=== PATIENT | male | born 1945 | race Two or more races ===

== ENCOUNTER → 2016-04-01 | Day surgery (SDC) | payer MEDICARE, OTHER ==
[~2016-04-01] VITALS: Ht 172.7 cm; Wt 74.4 kg
[2016-04-01] VITALS (9 sets, daily range): BP systolic 107–126; BP diastolic 55–65
[~2016-04-01] MED LIST: AMLODIPINE BESYL5 MG ORAL; ATORVASTATIN CA10 MG ORAL; LR 1000ml 1,000 ML IVLG SCH; LR 1000ml ONE; METFORMIN HCL500 M1 ORAL; Propofol 10mg/ml 20ml IV ONE
--- NOTE | 2016-04-01 07:58 | Short Stay Surgery H&P ---
History of Present Illness History of Present Illness Chief Complaint Abdominal pain and history of colon polyp, GERDs HPI Victor Manuel Chapa is a 70 year old male who was admitted on for Gerd,Abdominal Pain, colon polyp Patient History Allergies: Coded Allergies: No Known Allergies (Unverified , 03/31/16) PAST MEDICAL HISTORY: (1) Diabetes (2) Hyperlipidemia (3) Psoriasis (4) Hypertension Past Surgeries: Social History: Medication History Scheduled Amlodipine Besylate* (Amlodipine Besylate*), 5 MG ORAL DAILY, (Reported) Atorvastatin Calcium* (Lipitor*), 10 MG ORAL BEDTIME, (Reported) Metformin Hcl* (Metformin Hcl*), 500 MG ORAL DA, (Reported) Review of Systems Cardiovascular: Reports: no symptoms Respiratory: Reports: no symptoms Skeletal: Reports: no symptoms Gastrointestinal: Reports: gastro esophageal reflux disease Genitourinary: Reports: no symptoms Neurologic: Reports: no symptoms Endocrine: Reports: no symptoms Hematologic: Reports: no symptoms Physical Exam Vital Signs Last Vital Signs Date Time Temp Pulse Resp B/P Pulse Ox O2 Delivery O2 Flow Rate FiO2 04/01/16 07:24 97.5 62 18 126/65 100 Room Air Skin: normal HENT: normal Heart: abnormal Abdomen: normal Extremities: normal Genitourinary: normal Plan Plan of Care Upper and lower GI endoscopy Preop Interventions None. Summary of Findings See the reports Final Diagnosis: Attestation Are the patient's medical conditions optimized for surgery? Attestation Response: yes BALA LAWSON Apr 01, 2016 07:58
--- NOTE | 2016-04-01 08:00 | Pre-Procedure Note/Attestation ---
Pre-Procedure Note/Attestation Complete Prior to Procedure Planned Procedure: left Procedure Narrative: The examination of the upper and the lower GI tract. Indications for Procedure Pre-Operative Diagnosis: R/O coloon polyp/gastritis duodenal ulcer. Attestation I attest that I discussed the nature of the procedure; its benefits; risks and complications; and alternatives (and the risks and benefits of such alternatives ), prior to the procedure, with the patient (or the patient's legal public relations representative). I attest that, if there was a reasonable possibility of needing a blood transfusion, the patient (or the patient's legal public relations representative) was given the [place] [facility] [employer] [facility] standardized written summary, pursuant to the [place] Blood Safety Act ([place] Health and Safety Code # 1645, as amended). I attest that I re-evaluated the patient just prior to the surgery and that there has been no change in the patient's H&P, except as documented below: LULU,SAID Apr 01, 2016 08:00
--- NOTE | 2016-04-01 08:14 | Anethesia Preoperative Eval ---
Anesthesia Pre-op PMH/ROS General Date of Evaluation: Apr 01, 2016 Time of Evaluation: 07:58 Anesthesiologist: swapna ASA Score: ASA 3 Mallampati Score Class I : Soft palate, uvula, fauces, pillars visible Class II: Soft palate, uvula, fauces visible Class III: Soft palate, base of uvula visible Class IV: Only hard plate visible Mallampati Classification: Class II Surgeon: lucia Diagnosis: GERD, abdominal pain, hx colon polyp Surgical Procedure: gd/colonoscopy Anesthesia History: none Allergies: Coded Allergies: No Known Allergies (Unverified , 03/31/16) Past Medical History Cardiovascular: Reports: HTN Gastrointestinal/Genitourinary: Reports: other - BPH Anesthesia Pre-op Phys. Exam Physician Exam Last Vital Signs Date Time Temp Pulse Resp B/P Pulse Ox O2 Delivery O2 Flow Rate FiO2 04/01/16 07:24 97.5 62 18 126/65 100 Room Air Airway Exam Mallampati Score: Class II Teeth: missing Anesthesia Pre-op A/P Risk Assessment & Plan Plan: propofol Status Change Before Surgery: Yunior Faria MD Apr 01, 2016 08:14
--- NOTE | 2016-04-01 08:15 | Immediate Post-Op Evaluation ---
Immediate Post-Op Evalulation Immediate Post-Op Evalulation Date of Evaluation: Apr 01, 2016 Time of Evaluation: 08:37 IV Fluids: 500 Blood Pressure Systolic: 109 Blood Pressure Diastolic: 61 Pulse Rate: 56 Respiratory Rate: 20 O2 Sat by Pulse Oximetry: 100 Temperature (Fahrenheit): 98.5 Pain Score (1-10): 0 Nausea: No Vomiting: No Complications none Patient Status: awake, patent, none Hydration Status: adequate Yunior Anaya MD Apr 01, 2016 08:15
--- NOTE | 2016-04-01 08:17 | 48 Hour Post Anesthesia Eval ---
Post Anesthesia Evaluation Date of Evaluation: Apr 01, 2016 Time of Evaluation: 09:00 Blood Pressure Systolic: 116 0: 63 Pulse Rate: 55 Respiratory Rate: 13 Temperature (Fahrenheit): 98.5 O2 Sat by Pulse Oximetry: 100 Airway: patent Nausea: No Vomiting: No Pain Intensity: 0 Hydration Status: adequate Cardiopulmonary Status: stable Mental Status/LOC: patient returned to baseline Follow-up Care/Observations: n/a Post-Anesthesia Complications: tolerated well Follow-up care needed: ready to discharge Yunior Anaya MD Apr 01, 2016 08:17
--- NOTE | 2016-04-01 08:25 | Endoscopy Procedure Note ---
Endoscopy Procedure Note Indication for Procedure: Abdominal pains, GERDS and history of colon polyps. Procedures Performed: EGD - Small Hiatal hernia noted otherwise completely normal Upper GI endoscopy and random biospy obtained from gastric body., colonoscopy - Poor colon clean up with high redundancy of the colon and diverticulosis of the rectosigmoid area otherwise normal study no visible polyp noted though diminutive polypoid lesion can not be ruled out due to poor colon clean up. Specimen: yes Pt Tolerated Procedure Well: Yes Estimated Blood Loss: none Anesthesiologist: Dr. Dr. Anaya Anesthesia: moderate sedation Medication Given: see anesthesia record Implant(s) used?: No 50 yrs or older w/o bx or poly: Yes 10yrs. F/U not recommended: Yes If not recommended, why?: Inadequate Prep 10 yrs. F/U needed: Yes 18 years or older w/prev. colo: Yes <3yrs. since last colonoscopy: No Med reason:<3 yrs.: System Reason:<3 yrs.: BALA LAWSON Apr 01, 2016 08:25
--- NOTE | 2016-04-01 08:26 | Discharge Instructions ---
Discharge Instructions Discharge Instructions Follow up with: Visit the doctor after 2 weeks in office. For Congestive Heart Failure Reminder Report to your physician any weight gain of 5 pounds or more in one week. BALA LAWSON Apr 01, 2016 08:26
--- NOTE | 2016-04-01 08:58 | Operative Note - Dictated ---
DATE OF OPERATION: 04/01/2016 PROCEDURE: Esophagogastroduodenoscopy with biopsy. PREOPERATIVE DIAGNOSES: 1. Abdominal pain. 2. History of gastroesophageal reflux, rule out peptic ulcer disease. POSTOPERATIVE DIAGNOSIS: 1. Small hiatal hernia. Otherwise, complete normal upper gastrointestinal endoscopy. Biopsy was taken per random from gastric body. MEDICATIONS USED: Per Yunior Anaya M.D., anesthesiologist. INSTRUMENT: GIF Olympus upper gastrointestinal video endoscope. DESCRIPTION OF PROCEDURE: The patient after arriving endoscopy unit, was told about risks and benefits of the procedure, which he accepted and signed the informed consent. He was then put on the left lateral decubitus position. After adequate IV sedation, the scope was gently passed through the cricopharyngeal area, was lodged into the upper esophagus, gradually advanced towards gastroesophageal junction. The entire length of the esophagus looked normal. No evidence of varices, inflammatory process, ulceration, etc. was found. However, there was evidence of a small hiatal hernia of no great significance and there was no any evidence of Rodriguez's mucosa. The scope was then guided into the stomach. Gastric cavity was distended with insufflation of air and gradually the areas of the fundus and the body and the antrum were examined, which looked normal. The retroflexion maneuver was also applied in the fundus of the stomach, which did not reveal any abnormality in the area and GE junction. Finally, the scope was gradually guided into the body and a random biopsy from gastric body obtained, and subsequently, was passed through normal looking pylorus. First and second portion of duodenum were also found to be completely normal. At this time, the scope was pulled out and the procedure was terminated. The patient tolerated the procedure well. Said Soumya Giles DR: Jacqueline JOB#: [id number] CC:
--- NOTE | 2016-04-01 09:17 | Operative Note - Dictated ---
DATE OF OPERATION: 04/01/2016 SURGEON: Damian Giles M.D. PROCEDURE: Total colonoscopy. PREOPERATIVE DIAGNOSES: 1. History of colon polyp. 2. Abdominal pain. POSTOPERATIVE DIAGNOSES: 1. Poor colonic preparation. 2. Significantly redundant rectosigmoid colon with evidence of diverticulosis in this area. Otherwise, complete normal study up to the ileocecal valve as examined. MEDICATIONS USED: Per Yunior Anaya M.D., anesthesiologist. INSTRUMENT: GIF Olympus videocolonoscope. DESCRIPTION OF PROCEDURE: The patient after arriving in the endoscopy unit, was told about risks and benefits of the procedure, which he accepted and signed the informed consent. He was then put on the left lateral decubitus position. After adequate IV sedation, scope gently passed through the anal area and a retroflexion maneuver, which was applied here did not reveal any major hemorrhoids. At this point, the scope was gradually advanced into the rectum, it looked normal and passed into rectosigmoid area, which was filled with liquidy stool significantly making the examination difficult and there was some formed stool as well, however with irrigation scope was gradually passed through a very redundant rectosigmoid area, which revealed evidence of diverticular openings. There was no any evidence of inflammatory process, ulceration, or stricture however. With maneuvers significant amount of time was spent to pass through this redundant colon reaching to the splenic flexure. From there, the scope was guided into the transverse colon, hepatic flexure, and finally reached to the right colon through the base of the cecum. All these areas remained to be normal and no evidence of major polyps, tumors etc. was found. Due to poor cleanup of the colon however the presence of small diminutive hyperplastic polypoid lesion could not be ruled out. There was no any major polyps or tumors seen at this time. Within 6 to 7 minutes the scope was gradually pulled out and reexamination of the colon did not reveal any other pathology. The patient tolerated the procedure well and left the endoscopy room in a good condition. Damian Giles M.D. DR: ADDISON JOB#: [id number] CC:
== END | disposition home or self-care (01) ==
LOC: GAS 06:56
DX: K29.50 Unspecified chronic gastritis without bleeding (principal); K21.9 Gastro-esophageal reflux disease without esophagitis; K44.9 Diaphragmatic hernia without obstruction or gangrene; Z86.010 Personal history of colon polyps; Q43.8 Other specified congenital malformations of intestine; K57.30 Diverticulosis of large intestine without perforation or abscess without bleeding; E11.9 Type 2 diabetes mellitus without complications; Z79.84 Long term (current) use of oral hypoglycemic drugs; E78.5 Hyperlipidemia, unspecified; I10 Essential (primary) hypertension; N40.0 Benign prostatic hyperplasia without lower urinary tract symptoms; L40.9 Psoriasis, unspecified
CPT/HCPCS: 43239; 45378; 82962; J2704; J7120; 94003; 94150

== ENCOUNTER 2016-08-30 09:05 | Outpatient (CLI) | payer MEDICARE, OTHER ==
[~2016-08-30 09:05] MED LIST changes: -LR 1000ml 1,000 ML IVLG SCH; -LR 1000ml ONE; -Propofol 10mg/ml 20ml IV ONE
[2016-08-30 09:42] VITALS: BP_SYST 116; BP_SYST 126; BP_DIAS 54; BP_DIAS 76
--- NOTE | 2016-08-30 11:05 | GI Initial Consult Note ---
History of Present Illness General Date patient seen: Aug 30, 2016 Time patient seen: 10:47 Referring physician: GABE Reason for Consultation: ABDOMINAL PAIN/BLOATING Present Illness HPI 71 year old male patient referred by Dr. Washington for evaluation of abdominal pain and bloating. In addition the patient presents with c/o of GERD. The patient recently had an EGD performed in [place] by Dr. Lawson, see endoscopic procedure note below. The patient c/o of abdominal bloating, mainly before meals. He currently is on Hyoscyamine x 2 months and probiotics with minimal relief. The patient also reports that he has not taken his Dexilant. The patient also c/o of weight loss. Has hx of iron deficiency. Endoscopy Procedure Note Indication for Procedure: Abdominal pains, GERDS and history of colon polyps. Procedures Performed: EGD - Small Hiatal hernia noted otherwise completely normal Upper GI endoscopy and random biopsy obtained from gastric body., colonoscopy - Poor colon clean up with high redundancy of the colon and diverticulosis of the rectosigmoid area otherwise normal study no visible polyp noted though diminutive polypoid lesion can not be ruled out due to poor colon clean up. BALA LAWSON - Apr 01, 2016 08:25 Home Meds Reported Medications Metformin Hcl* (METFORMIN HCL*) 500 Mg Tablet, 500 MG ORAL DA, TAB 03/31/16 Atorvastatin Calcium* (LIPITOR*) 10 Mg Tablet, 10 MG ORAL BEDTIME, TAB 03/31/16 Amlodipine Besylate* (AMLODIPINE BESYLATE*) 5 Mg Tablet, 5 MG ORAL DAILY, TAB 03/31/16 Med list reviewed/reconciled: Yes Allergies: Coded Allergies: No Known Allergies (Unverified , 03/31/16) Patient History History Provided By: Patient, Medical Record PMH Narrative PAST MEDICAL HISTORY: (1) Diabetes (2) Hyperlipidemia (3) Psoriasis (4) Hypertension PSHx - N/A Family History Narrative Mother - Pancreatic CA, passed at age 80. Social History: Reports: other - coffee Review of Systems All Other Systems: negative except mentioned in HPI Physical Exam Vital Signs Date Time Temp Pulse Resp B/P Pulse Ox O2 Delivery O2 Flow Rate FiO2 08/30/16 09:42 98.1 55 16 116/54 100 Sp02 EP Interpretation: reviewed General Appearance: well appearing, no apparent distress, alert Head: normocephalic EENT: PERRL/EOMI, normal ENT inspection Neck: supple Respiratory: normal breath sounds, no respiratory distress Cardiovascular: normal rate Gastrointestinal: normal inspection, non tender, soft, normal bowel sounds Rectal: deferred Musculoskeletal: normal inspection, back normal Neurologic: normal inspection, alert, oriented x3, responsive Psychiatric: normal inspection, judgement/insight normal, memory normal Skin: normal inspection, normal color, no rash, warm/dry, palpation normal Lymphatic: normal inspection, no adenopathy GI: Plan Problems: (1) Weight loss (2) Abdominal pain (3) Abdominal bloating (4) Iron deficiency (5) GERD (gastroesophageal reflux disease) (6) Diabetes (7) Hyperlipidemia Plan EGD/pathology reviewed with patient. ordered APCT given recent weight loss SBCE after imaging studies consider BT ?symptoms due to metformin RTC after imaging study. Seen with Dr. Garcia. Thank you for referring this patient. Radha Blair N.P. Aug 30, 2016 11:05
[2016-08-30] MEDS ORDERED: FERROUS SULFAT325 MG ORAL (12:56)
[2016-08-30] MEDS ORDERED: ASPIRIN EC81 MG ORAL (12:56)
[2016-08-30] MEDS ORDERED: PSYLLIUM FIBE0.52 G1 PO (12:56)
[2016-08-30] MEDS ORDERED: DOK100 M2 PO (12:56)
== END 2016-08-30 09:40 | disposition home or self-care (01) ==
LOC: PAN 09:05
DX: R10.9 Unspecified abdominal pain (principal); R14.0 Abdominal distension (gaseous); R63.4 Abnormal weight loss; E61.1 Iron deficiency; K21.9 Gastro-esophageal reflux disease without esophagitis; E11.9 Type 2 diabetes mellitus without complications; E78.5 Hyperlipidemia, unspecified; Z86.010 Personal history of colon polyps; I10 Essential (primary) hypertension; Z80.0 Family history of malignant neoplasm of digestive organs
CPT/HCPCS: 99201

== ENCOUNTER → 2016-09-01 | Outpatient (CLI) | payer MEDICARE, OTHER ==
[~2016-09-01] MED LIST changes: +ASPIRIN EC81 MG ORAL; +DOK100 M2 PO; +FERROUS SULFAT325 MG ORAL; +PSYLLIUM FIBE0.52 G1 PO
--- NOTE | 2016-09-01 13:30 | Diagnostic Imaging Report ---
Indications: Abdominal pain, bloating, weight loss Technique: Continuous helical CT imaging of the abdomen and pelvis was performed with automatic exposure control following administration of oral and intravenous nonionic iodine contrast, on a Siemens sensation [address] scanner. Axial, coronal, and sagittal images were reconstructed at 5 mm slice thickness. CTDI volume(s): 16 mGy Total DLP: 913 mGy-cm Findings: Comparison: None Oral contrast has passed throughout the gastrointestinal tract to the level of descending colon. Entire tract nondilated. Appendix unremarkable. Increased feces throughout colon. Multiple sigmoid colon diverticula. No obvious mass/mural thickening, adjacent stranding, associated extraluminal gas or fluid collections. 5 and 10 mm circumscribed low-attenuation foci upper pole cortex right kidney. 3 mm circumscribed low-attenuation focus interpolar cortex left kidney. Scattered mild arterial mural calcification without obvious flow-limiting stenosis or occlusion. Prostate, seminal vesicles absent. Multiple pelvic surgical clips in the prostate and along both pelvic sidewalls. Liver, gallbladder, pancreas, spleen, adrenal glands, unopacified ureters and distended urinary bladder, retroperitoneum, mesentery, remainder visualized abdominopelvic anatomy unremarkable. Mildly enlarged, affecting all 4 chambers. No significant myocardial hypertrophy. Mild increased interstitial markings and dependent portions of both lung bases. Multilevel disc space narrowing with marginal osteophyte formation lumbar, lower thoracic spine. Multilevel mild facet hypertrophy lower lumbar spine. No focal skeletal lesion identified. IMPRESSION: No evidence of acute abdominopelvic disease No evidence of neoplasm Previous radical prostatectomy Colonic diverticulosis Constipation Bilateral renal cortical lesions most likely cysts. Ultrasound confirmation suggested. Mild arteriosclerosis Mild cardiomegaly with four-chamber enlargement Nonspecific pulmonary bibasal interstitial prominence, most likely compressive Degenerative spondylosis
== END | disposition home or self-care (01) ==
LOC: CAT 08:45
DX: R10.9 Unspecified abdominal pain (principal); R63.4 Abnormal weight loss; K57.90 Diverticulosis of intestine, part unspecified, without perforation or abscess without bleeding; K59.00 Constipation, unspecified; I70.90 Unspecified atherosclerosis; I51.7 Cardiomegaly; M47.9 Spondylosis, unspecified
CPT/HCPCS: 74177; Q9967

== ENCOUNTER 2016-09-07 13:05 | Outpatient (CLI) | payer MEDICARE ==
[2016-09-07 14:49] VITALS: BP 120/72
--- NOTE | 2016-09-07 15:33 | GI Progress Note ---
Assessment/Plan Problems: (1) Constipation ICD Codes: K59.00 - Constipation, unspecified SNOMED: 04790084 (2) GERD (gastroesophageal reflux disease) ICD Codes: K21.9 - Gastro-esophageal reflux disease without esophagitis SNOMED: 235080615 (3) Iron deficiency ICD Codes: E61.1 - Iron deficiency SNOMED: 80722652 (4) Weight loss ICD Codes: R63.4 - Abnormal weight loss SNOMED: 54137183, 297966858 (5) Abdominal bloating ICD Codes: R14.0 - Abdominal distension (gaseous) SNOMED: 829158735 (6) Abdominal pain ICD Codes: R10.9 - Unspecified abdominal pain SNOMED: 83521666 Status: stable Status Narrative Seen with Dr. Garcia. Assessment/Plan Plan for SBCE next monday09/13/16. - CLD + 1L [employer] instructions day prior procedure explained to patient. rx prevacid rx miralax Breath test on next visit The patient was seen and examined at bedside and all new and available data was reviewed in the patients chart. I agree with the above findings, impression and plan. (Patient seen earlier today. Signature stamp does not reflect patient encounter time.). -Earle Garcia MD Subjective Subjective abdominal pain, epigastric has burning pain which is relieved by zantac OTC constipation weight loss anemia >> gotten better Hgb with Ferrous sulfate Objective Last 24 Hour Vital Signs Date Time Temp Pulse Resp B/P Pulse Ox O2 Delivery O2 Flow Rate FiO2 09/07/16 14:49 97.8 59 16 120/72 General Appearance: no apparent distress, alert Cardiovascular: normal rate Respiratory/Chest: normal breath sounds, no respiratory distress Abdominal Exam: normal bowel sounds, non tender, soft Extremities: normal range of motion Radha Blair N.PJonas Sep 07, 2016 15:33 EARLE GARCIA Sep 08, 2016 16:54
== END 2016-09-07 14:30 | disposition home or self-care (01) ==
LOC: PAN 13:05
DX: K59.00 Constipation, unspecified (principal); K21.9 Gastro-esophageal reflux disease without esophagitis; E61.1 Iron deficiency; R63.4 Abnormal weight loss; R14.0 Abdominal distension (gaseous); R10.9 Unspecified abdominal pain
CPT/HCPCS: 99211

== ENCOUNTER 2016-09-15 09:00 | Outpatient (CLI) | payer MEDICARE ==
[2016-09-15 09:41] VITALS: BP 118/58
--- NOTE | 2016-09-15 15:43 | GI Progress Note ---
Assessment/Plan Problems: (1) Anemia ICD Codes: D64.9 - Anemia, unspecified SNOMED: 177229775 (2) Weight loss ICD Codes: R63.4 - Abnormal weight loss SNOMED: 61395108, 095353528 (3) Iron deficiency ICD Codes: E61.1 - Iron deficiency SNOMED: 79445302 Status: stable Status Narrative Discussed with Dr. Garcia. Assessment/Plan SBCE today. RTC tomorrow for equipment return. will contact to f/u for procedure reviews Subjective Gastrointestinal/Abdominal: Reports: no symptoms Objective Last 24 Hour Vital Signs Date Time Temp Pulse Resp B/P Pulse Ox O2 Delivery O2 Flow Rate FiO2 09/15/16 09:41 97.8 60 16 118/58 General Appearance: no apparent distress, alert Cardiovascular: normal rate Respiratory/Chest: normal breath sounds, no respiratory distress Abdominal Exam: normal bowel sounds, non tender, soft Extremities: normal range of motion Radha Blair N.P. Sep 15, 2016 15:43
== END 2016-09-15 10:00 | disposition home or self-care (01) ==
LOC: PAN 09:00
DX: D64.9 Anemia, unspecified (principal); R63.4 Abnormal weight loss; E61.1 Iron deficiency

== ENCOUNTER 2016-09-28 13:36 | Outpatient (CLI) | payer MEDICARE ==
--- NOTE | 2016-09-28 15:17 | GI Progress Note ---
Assessment/Plan Problems: (1) Anemia ICD Codes: D64.9 - Anemia, unspecified SNOMED: 886453257 (2) Weight loss ICD Codes: R63.4 - Abnormal weight loss SNOMED: 34912541, 554658586 (3) Iron deficiency ICD Codes: E61.1 - Iron deficiency SNOMED: 86373013 (4) Abdominal pain ICD Codes: R10.9 - Unspecified abdominal pain SNOMED: 13166756 (5) GERD (gastroesophageal reflux disease) ICD Codes: K21.9 - Gastro-esophageal reflux disease without esophagitis SNOMED: 315888160 (6) Abdominal bloating ICD Codes: R14.0 - Abdominal distension (gaseous) SNOMED: 538457406 (7) Constipation ICD Codes: K59.00 - Constipation, unspecified SNOMED: 06069465 Status: stable Status Narrative Seen with Dr. Garcia. Assessment/Plan weight has been stable past month ~ 160 lbs Rx Prevacid 30 PO daily add Align RTC x 6 months Subjective Subjective no symptoms here for SBCE review Objective T 98 BP 106/52 P 59 98 RA WT 158.2 denies weight loss General Appearance: no apparent distress, alert Cardiovascular: normal rate Respiratory/Chest: normal breath sounds, no respiratory distress Abdominal Exam: normal bowel sounds, non tender, soft Extremities: normal range of motion Radha Blair N.P. Sep 28, 2016 15:17
== END 2016-09-28 14:00 | disposition home or self-care (01) ==
LOC: PAN 13:36
DX: D64.9 Anemia, unspecified (principal); R63.4 Abnormal weight loss; E61.1 Iron deficiency; R10.9 Unspecified abdominal pain; K21.9 Gastro-esophageal reflux disease without esophagitis; R14.0 Abdominal distension (gaseous); K59.00 Constipation, unspecified
CPT/HCPCS: 99211

== ENCOUNTER 2017-06-26 13:38 | Outpatient (CLI) | payer MEDICARE, MEDICAID ==
[2017-06-26] MEDS ORDERED: AMITIZA24 MCG ORAL (15:20)
[2017-06-26] MEDS ORDERED: DEXILANT60 MG ORAL (15:20)
[2017-06-26 15:25] VITALS: BP 115/61
--- NOTE | 2017-06-26 15:26 | GI Progress Note ---
Assessment/Plan Problems: (1) GERD (gastroesophageal reflux disease) ICD Codes: K21.9 - Gastro-esophageal reflux disease without esophagitis SNOMED: 465602381 (2) Abdominal bloating ICD Codes: R14.0 - Abdominal distension (gaseous) SNOMED: 482727699 (3) Anemia ICD Codes: D64.9 - Anemia, unspecified SNOMED: 938404424 (4) Iron deficiency ICD Codes: E61.1 - Iron deficiency SNOMED: 81178642 Status: stable, unchanged Status Narrative Seen with Dr. Garcia. Assessment/Plan FOB + by Dr. Knapp Iron deficiency Anemia >> receiving IV iron 2 out of [address] Meraz SBGARTH scheduled for 06/26/17. recommended Align add colace RTC for procedure. Subjective Subjective Epigastric pain abdominal bloating blood in stool Objective T 98.0 BP 112/64 P 62 99RA WT 163lbs General Appearance: WD/WN, no apparent distress, alert Cardiovascular: normal rate Respiratory/Chest: normal breath sounds, no respiratory distress Abdominal Exam: normal bowel sounds, non tender, soft Extremities: normal range of motion, non-tender Radha Blair N.PJonas June 26, 2017 15:26
[2017-06-26] MEDS ORDERED: VITAMIN D250000 UNI1 ORAL (16:26)
[2017-06-26] MEDS ORDERED: AMLODIPINE BES2.5 MG ORAL (16:26)
== END 2017-06-26 14:10 | disposition home or self-care (01) ==
LOC: PAN 13:38
DX: K21.9 Gastro-esophageal reflux disease without esophagitis (principal); R14.0 Abdominal distension (gaseous); D64.9 Anemia, unspecified; E61.1 Iron deficiency
CPT/HCPCS: 99213

== ENCOUNTER → 2017-07-04 | Outpatient (CLI) | payer MEDICARE, MEDICAID ==
[~2017-07-04] MED LIST changes: +AMITIZA24 MCG ORAL; +AMLODIPINE BES2.5 MG ORAL; +DEXILANT60 MG ORAL; +VITAMIN D250000 UNI1 ORAL
[2017-07-04 09:38] VITALS: BP 117/52
--- NOTE | 2017-07-04 11:27 | GI Progress Note ---
Assessment/Plan Problems: (1) Encounter for diagnostic endoscopy ICD Codes: Z01.818 - Encounter for other preprocedural examination SNOMED: 781488439, 078099501 (2) Anemia ICD Codes: D64.9 - Anemia, unspecified SNOMED: 366510775 (3) Abdominal pain ICD Codes: R10.9 - Unspecified abdominal pain SNOMED: 83124915 (4) Iron deficiency ICD Codes: E61.1 - Iron deficiency SNOMED: 59673152 Status: stable Status Narrative Seen with Dr. Garcia. Assessment/Plan Small Capsule Capsule Endoscopy Today. RTC tomorrow to return device. Subjective Gastrointestinal/Abdominal: Reports: no symptoms Objective Last 24 Hour Vital Signs Date Time Temp Pulse Resp B/P (MAP) Pulse Ox O2 Delivery O2 Flow Rate FiO2 07/04/17 09:38 97.4 58 16 117/52 100 97.4 General Appearance: WD/WN, no apparent distress, alert Cardiovascular: normal rate Respiratory/Chest: normal breath sounds, no respiratory distress Abdominal Exam: normal bowel sounds, non tender, soft Extremities: normal range of motion, non-tender Brynn Blair [employer]ITE WORKER July 04, 2017 11:27
== END | disposition home or self-care (01) ==
LOC: PAN 08:40
DX: Z01.818 Encounter for other preprocedural examination (principal); D64.9 Anemia, unspecified; R10.9 Unspecified abdominal pain; E61.1 Iron deficiency

== ENCOUNTER 2017-07-13 12:48 | Outpatient (CLI) | payer MEDICARE, MEDICAID ==
[2017-07-13 13:22] VITALS: BP 145/68
--- NOTE | 2017-07-13 15:52 | GI Progress Note ---
Assessment/Plan Problems: (1) Abdominal pain ICD Codes: R10.9 - Unspecified abdominal pain SNOMED: 86796948 (2) Anemia ICD Codes: D64.9 - Anemia, unspecified SNOMED: 435393420 (3) Iron deficiency ICD Codes: E61.1 - Iron deficiency SNOMED: 78460582 (4) GERD (gastroesophageal reflux disease) ICD Codes: K21.9 - Gastro-esophageal reflux disease without esophagitis SNOMED: 084055085 (5) Abdominal bloating ICD Codes: R14.0 - Abdominal distension (gaseous) SNOMED: 987007523 Status: stable Status Narrative Seen with Dr. Garcia. Assessment/Plan EGD/colonoscopy scheduled 07/19/17. - CLD & (Nulytely/Suprep/Movi-Prep) prep instructions given and acknowledged by patient. - NPO @ IN day prior procedure explained. The patient was seen and examined at bedside and all new and available data was reviewed in the patients chart. I agree with the above findings, impression and plan. (Patient seen earlier today. Signature stamp does not reflect patient encounter time.). - Earle Garcia MD Subjective Subjective GERD pain Objective Last 24 Hour Vital Signs Date Time Temp Pulse Resp B/P (MAP) Pulse Ox O2 Delivery O2 Flow Rate FiO2 07/13/17 13:22 98.0 63 145/68 98 98.0 General Appearance: WD/WN, no apparent distress, alert Cardiovascular: normal rate Respiratory/Chest: normal breath sounds, no respiratory distress Abdominal Exam: normal bowel sounds, non tender, soft Extremities: normal range of motion, non-tender Brynn Blair [employer] O[employer]ATOR July 13, 2017 15:52
== END 2017-07-13 13:20 | disposition home or self-care (01) ==
LOC: PAN 12:48
DX: R10.9 Unspecified abdominal pain (principal); D64.9 Anemia, unspecified; E61.1 Iron deficiency; K21.9 Gastro-esophageal reflux disease without esophagitis; R14.0 Abdominal distension (gaseous)
CPT/HCPCS: 99212

== ENCOUNTER 2017-07-19 07:11 | Day surgery (SDC) | payer MEDICARE, MEDICAID ==
[~2017-07-19] VITALS: Ht 167.6 cm; Wt 73.5 kg
[2017-07-19] VITALS (9 sets, daily range): BP systolic 113–131; BP diastolic 59–73
--- NOTE | 2017-07-19 06:56 | Anethesia Preoperative Eval ---
Anesthesia Pre-op PMH/ROS General Date of Evaluation: July 19, 2017 Time of Evaluation: 06:55 Anesthesiologist: teagan ASA Score: ASA 3 Mallampati Score Class I : Soft palate, uvula, fauces, pillars visible Class II: Soft palate, uvula, fauces visible Class III: Soft palate, base of uvula visible Class IV: Only hard plate visible Mallampati Classification: Class II Surgeon: sam Diagnosis: anemia, abdominal pain Surgical Procedure: egd/colonoscopy Family History: no anesthesia problems Allergies: Coded Allergies: No Known Allergies (Unverified , 03/31/16) Medications: see eMAR Past Medical History Cardiovascular: Reports: HTN, arrhythmia - bradycardia, other - hypercholesterolemia Gastrointestinal/Genitourinary: Reports: other - prostate cancer Endocrine: Reports: DM Anesthesia Pre-op Phys. Exam Physician Exam Last Vital Signs Date Time Temp Pulse Resp B/P (MAP) Pulse Ox O2 Delivery O2 Flow Rate FiO2 07/19/ 07:45 97.3 55 18 130/68 99 Room Air 97.3 Constitutional: NAD Neurologic: CN 2-12 intact Cardiovascular: RRR Respiratory: CTA Gastrointestinal: S/NT/ND Airway Exam Mallampati Score: Class II MO: full Neck: supple TMD: 2fb ROM: full Anesthesia Pre-op A/P Studies Pre-op Studies: EKG - sinus bradycardia Risk Assessment & Plan Assessment: asa3 Plan: mac Status Change Before Surgery: No Pre-Antibiotics Drug: Maria Martinez MD July 19, 2017 06:56
[2017-07-19] MEDS ORDERED: blood pressure PO (07:52)
[2017-07-19] MEDS ORDERED: cholesterol pill PO (07:52)
[2017-07-19] MEDS ORDERED: AMLODIPINE BESYL5 MG ORAL (07:55)
[2017-07-19] MEDS ORDERED: fentaNYL 100 mcg/2 mL IV PRN (08:15)
[2017-07-19] MEDS ORDERED: DiphenhydrAMINE 50mg/ml Inj IVP PRN (08:15)
[2017-07-19] MEDS ORDERED: Atropine Inj 1mg/10ml Syr IV PRN (08:15)
[2017-07-19] MEDS ORDERED: Midazolam 2mg/2ml Inj IVP PRN (08:15)
[2017-07-19] MEDS ORDERED: Glycopyrrolate 0.2mg/ml 1ml Vial ONE (08:30)
[2017-07-19] MEDS ORDERED: Midazolam 2mg/2ml Inj ONE (08:30)
[2017-07-19] MEDS ORDERED: Lidocaine 1% MPF 10mg/ml 5ml ONE (08:30)
[2017-07-19] MEDS ORDERED: Propofol 200mg/20ml IV ONE (08:30)
--- NOTE | 2017-07-19 08:46 | Pre-Procedure Note/Attestation ---
Pre-Procedure Note/Attestation Complete Prior to Procedure Planned Procedure: not applicable Procedure Narrative: esophagogastroduodenoscopy and colonoscopy Indications for Procedure Pre-Operative Diagnosis: iron def anemia Attestation I attest that I discussed the nature of the procedure; its benefits; risks and complications; and alternatives (and the risks and benefits of such alternatives ), prior to the procedure, with the patient (or the patient's legal client services representative). I attest that, if there was a reasonable possibility of needing a blood transfusion, the patient (or the patient's legal client services representative) was given the [facility] standardized written summary, pursuant to the [place] Blood Safety Act ([place] Health and Safety Code # 1645, as amended). I attest that I re-evaluated the patient just prior to the surgery and that there has been no change in the patient's H&P, except as documented below: Earle Garcia MD July 19, 2017 08:46
--- NOTE | 2017-07-19 08:47 | Short Stay Surgery H&P ---
History of Present Illness History of Present Illness Chief Complaint iron def anemia HPI Victor Manuel Chapa is a 71 year old male who was admitted on for Anemia And Abdominal Pain Patient History Allergies: Coded Allergies: No Known Allergies (Unverified , 07/19/17) PAST MEDICAL HISTORY: (1) Iron deficiency anemia Medication History Scheduled Amlodipine Besylate* (Amlodipine Besylate*), 5 MG ORAL DAILY, (Reported) [cholesterol pill], Unknown Dose PO DAILY, (Reported) Review of Systems Cardiovascular: Reports: no symptoms Respiratory: Reports: no symptoms Skeletal: Reports: no symptoms Gastrointestinal: Reports: no symptoms Genitourinary: Reports: no symptoms Neurologic: Reports: no symptoms Endocrine: Reports: no symptoms Hematologic: Reports: anemia Physical Exam Vital Signs Last Vital Signs Date Time Temp Pulse Resp B/P (MAP) Pulse Ox O2 Delivery O2 Flow Rate FiO2 07/19/17 07:45 97.3 55 18 130/68 99 Room Air 97.3 Skin: normal HENT: normal Heart: normal Lungs: normal Abdomen: normal Extremities: normal Plan Plan of Care esophagogastroduodenoscopy and colonoscopy Attestation Are the patient's medical conditions optimized for surgery? Attestation Response: yes Earle Garcia MD July 19, 2017 08:47
[2017-07-19 09:58] LABS: HEMATOCRIT 32.9 % (42.0-52.0); HEMOGLOBIN 9.7 G/DL (14.2-18.0); MEAN CORPUSCULAR VOLUME 73 FL (80-99); PLATELET COUNT 273 K/UL (150-450); RED BLOOD COUNT 4.48 M/UL (4.70-6.10); RED CELL DISTRIBUTION WIDTH 17.2 % (11.6-14.8); WHITE BLOOD COUNT 3.3 K/UL (4.8-10.8)
[2017-07-19 10:05] LABS: ANION GAP 7 mmol/L (5-15); BLOOD UREA NITROGEN 12 mg/dL (7-18); CALCIUM 8.6 MG/DL (8.5-10.1); CARBON DIOXIDE 30 MMOL/L (21-32); CHLORIDE 106 MMOL/L (98-107); CREATININE 0.9 MG/DL (0.55-1.30); POTASSIUM 3.7 MMOL/L (3.5-5.1); SODIUM 143 MMOL/L (136-145)
--- NOTE | 2017-07-19 11:00 | Procedure Note ---
DATE OF PROCEDURE: 07/19/2017 SURGEON: Earle Garcia M.D. ANESTHESIOLOGIST: Dr. Sifuentes. REFERRING PHYSICIAN: Damian Giles M.D. PROCEDURE: Upper endoscopy with biopsy and colonoscopy with biopsy. ANESTHESIA: Per Dr. Sifuentes. INSTRUMENT: Olympus adult flexible upper endoscope and colonoscope. INDICATION: Iron-deficiency anemia. The procedure, risks, benefits, and possible consequences, including hemorrhage, aspiration, perforation and infection, and alternative treatments, were explained to the patient/legal guardian by Dr. Earle Garcia and the patient/legal guardian understood and accepted these risks. DESCRIPTION OF PROCEDURE: After informed consent was obtained and the patient was adequately sedated, first Olympus upper endoscope was advanced from the mouth to the second portion of duodenum and retroflexion was performed in the stomach. The patient has evidence of 5-cm hiatal hernia. In the stomach, there was evidence of diffuse gastritis. Random biopsy from antrum and body was obtained to rule out H. pylori infection. The patient had evidence of a small inlet patch seen below the upper esophagus sphincter. At this time, the upper endoscope was retrieved. The patient was turned over for colonoscopy. First, rectal exam was performed which was normal. Then the scope was advanced from the rectum into the cecum documented by appendiceal orifice, ileocecal valve, and right upper quadrant palpation. Quality of prep was very good. The patient had an ulcerative mass in the very proximal ascending colon, almost opening to the cecum. This mass was somewhat circumferential, relatively ulcerated and flat, highly suspicious for malignancy. Multiple biopsies from this ulcerative area were obtained. The patient also had evidence of some scattered diverticulosis in the left colon. The rest of the exam grossly within normal limit. Retroflexion of rectum showed evidence of internal hemorrhoids. SUMMARY OF FINDINGS: 1. A 5-cm hiatal hernia. 2. Inlet patch. 3. Gastritis, status post biopsy. 4. Ulcerative mass in the proximal ascending colon/cecum, status post biopsy. 5. Diverticulosis. 6. Internal hemorrhoids. RECOMMENDATIONS: We will order CBC and BMP for today. We will order CEA for today. We will follow pathology. We recommend choudhary CT to rule out metastasis. If he is not metastasized, we recommend surgical resection and Oncology followup. I want to thank Dr. Damian Giles for this kind referral. Earle Garcia M.D. DR: Alvina JOB#: [id number] CC: Damian Giles M.D.; Fax#: [phone]
--- NOTE | 2017-07-19 11:28 | Immediate Post-Op Evaluation ---
Immediate Post-Op Evalulation Immediate Post-Op Evalulation Procedure: egd/colonoscopy/bx Date of Evaluation: July 19, 2017 Time of Evaluation: 09:35 IV Fluids: 500ml 0.9ns Blood Products: none Estimated Blood Loss: negligible Blood Pressure Systolic: 116 Blood Pressure Diastolic: 73 Pulse Rate: 57 Respiratory Rate: 18 O2 Sat by Pulse Oximetry: 99 Temperature (Fahrenheit): 96.9 Pain Score (1-10): 0 Nausea: No Vomiting: No Complications none Patient Status: awake, reacts, patent Hydration Status: adequate Drug: Maria Martinez MD July 19, 2017 11:28
--- NOTE | 2017-07-19 11:31 | 48 Hour Post Anesthesia Eval ---
Post Anesthesia Evaluation Procedure: egd/colonoscopy/bx Date of Evaluation: July 19, 2017 Time of Evaluation: 09:37 Blood Pressure Systolic: 131 0: 72 Pulse Rate: 57 Respiratory Rate: 18 Temperature (Fahrenheit): 96.9 O2 Sat by Pulse Oximetry: 99 Airway: patent Nausea: No Vomiting: No Pain Intensity: 0 Hydration Status: adequate Cardiopulmonary Status: stable Mental Status/LOC: patient returned to baseline Post-Anesthesia Complications: none Follow-up care needed: N/A Maria Flood MD July 19, 2017 11:31
--- NOTE | 2017-07-21 10:24 | Endoscopy Procedure Note ---
Endoscopy Procedure Note General Indication for Procedure: anemia Procedures Performed: EGD, colonoscopy Operative Findings/Diagnosis: colon mass Specimen: yes Pt Tolerated Procedure Well: Yes Estimated Blood Loss: none Anesthesia Anesthesiologist: see chart Anesthesia: MAC Inserted Devices Implant(s) used?: No Quality Quality of Bowel Preparation: Good Did scope reach the cecum?: Yes Was there any complications?: No GI Core Measures 50 yrs or older w/o bx or poly: No 10yrs. F/U not recommended: Yes If not recommended, why?: Above average risk 10 yrs. F/U needed: Yes 18 years or older w/prev. colo: Yes <3yrs. since last colonoscopy: Yes Med reason:<3 yrs.: colon mass Earle Garcia MD Jul 21, 2017 10:24
== END 2017-07-19 11:10 | disposition home or self-care (01) ==
LOC: GAS 07:11 → MERGE 07:11 → GAS 11:10
DX: K29.70 Gastritis, unspecified, without bleeding (principal); K44.9 Diaphragmatic hernia without obstruction or gangrene; K57.90 Diverticulosis of intestine, part unspecified, without perforation or abscess without bleeding; K64.8 Other hemorrhoids; I10 Essential (primary) hypertension; E78.00 Pure hypercholesterolemia, unspecified; E11.9 Type 2 diabetes mellitus without complications; Z85.46 Personal history of malignant neoplasm of prostate; R00.1 Bradycardia, unspecified
CPT/HCPCS: 36415; 43239; 45380; 80048; 82378; 82962; 85007; 85025; 93005; J2250; J2704; 94003; 94150

== ENCOUNTER 2017-07-20 08:28 | Outpatient (CLI) | payer MEDICARE, MEDICAID ==
[~2017-07-20 08:28] MED LIST changes: +blood pressure PO; +cholesterol pill PO
--- NOTE | 2017-07-20 12:04 | Diagnostic Imaging Report ---
Indication: Chest and abdominal pain. Anemia. Technique: Continuous helical transaxial imaging of the chest, abdomen and pelvis was obtained from the lung bases to the pubic symphysis during intravenous contrast administration. Multiple phases of enhancement obtained. Coronal 2-D reformats were also obtained. Study obtained in a Siemens sensation [address] Automatic Exposure Control was utilized. Total Dose length Product (DLP): 1376.[address] Dose Index Volume (CTDIvol): 13.63,13.38 mGy Comparison: CT abdomen pelvis 09/01/2016 Findings: CT chest: The lungs are essentially clear. There is a minimal posterior basilar atelectasis demonstrated. No pleural effusion or nodules identified. The mediastinum and nilton appear unremarkable. The heart is unremarkable. There is a small hiatal hernia. There are several small renal hypodensities likely cysts. Some are too small to characterize adequately but there is no gross change compared to the prior study. There is no hydronephrosis or evidence of nephrolithiasis. There is a moderate retention of stool within a slightly distended colon and rectum. Surgical clips in the prostate bed noted. Thickening of the wall the urinary bladder demonstrated. The bladder is mostly nondistended. The appendix is normal. There is no free fluid or free air or evidence of bowel obstruction. There is no adrenal mass. The liver and spleen and pancreas are unremarkable. No adenopathy seen. IMPRESSION: No acute findings in the chest abdomen or pelvis. No evidence of malignant neoplasm. Moderate retention of fecal material within the colon and rectum. Atherosclerotic disease. Hypodensities in the kidneys bilaterally some too small to characterize. Some appear cystic. Findings grossly unchanged from 09/01/2016. Status post prostatectomy. Thickening of the wall the urinary bladder may be due to cystitis. Please correlate clinically. The CT scanner at [facility] is accredited by the [employer] and the scans are performed using dose optimization techniques as appropriate to a performed exam including Automatic Exposure control.
--- NOTE | 2017-07-24 07:47 | Cardiology Report ---
APPROVED REPORT EKG Measurement Heart [id number] Sinus bradycardia Otherwise normal ECG
== END 2017-07-20 10:28 | disposition home or self-care (01) ==
LOC: CAT 08:28
DX: D64.9 Anemia, unspecified (principal); K63.89 Other specified diseases of intestine; Z90.79 Acquired absence of other genital organ(s); I70.90 Unspecified atherosclerosis
CPT/HCPCS: 71260; 74177; 93005; Q9967

== ENCOUNTER 2017-07-24 13:25 | Outpatient (CLI) | payer MEDICARE, MEDICAID ==
[2017-07-24 13:56] VITALS: BP 119/55
--- NOTE | 2017-07-24 14:27 | GI Progress Note ---
Assessment/Plan Problems: (1) Colon cancer ICD Codes: C18.9 - Malignant neoplasm of colon, unspecified SNOMED: 296040840 Status: unchanged Status Narrative Discussed with Dr. Garcia. Assessment/Plan SUMMARY OF FINDINGS reviewed with patient: 1. A 5-cm hiatal hernia. 2. Inlet patch. 3. Gastritis, status post biopsy. 4. Ulcerative mass in the proximal ascending colon/cecum, status post biopsy. > > adenocarcinoma 5. Diverticulosis. 6. Internal hemorrhoids. Colon CA CT AP reviewed with no obvious signs of metastasis RECOMMENDATIONS: referred to surgery for resection RTC prn Subjective Gastrointestinal/Abdominal: Reports: abdominal pain Objective Last 24 Hour Vital Signs Date Time Temp Pulse Resp B/P (MAP) Pulse Ox O2 Delivery O2 Flow Rate FiO2 07/24/17 13:56 98.1 61 119/55 98 98.1 General Appearance: WD/WN, no apparent distress, alert Cardiovascular: normal rate Respiratory/Chest: normal breath sounds, no respiratory distress Abdominal Exam: normal bowel sounds, non tender, soft Extremities: normal range of motion, non-tender Brynn Blair CORE DIPPER Jul 24, 2017 14:27
== END 2017-07-24 14:00 | disposition home or self-care (01) ==
LOC: PAN 13:25
DX: C18.9 Malignant neoplasm of colon, unspecified (principal); K44.9 Diaphragmatic hernia without obstruction or gangrene; K29.70 Gastritis, unspecified, without bleeding; K57.90 Diverticulosis of intestine, part unspecified, without perforation or abscess without bleeding; K64.8 Other hemorrhoids
CPT/HCPCS: 99212

== ENCOUNTER 2018-08-09 14:26 | Outpatient (CLI) | payer MEDICARE ==
--- NOTE | 2018-08-09 14:50 | General Progress Note ---
Assessment/Plan Problem List: (1) Colon cancer ICD Codes: C18.9 - Malignant neoplasm of colon, unspecified SNOMED: 843963419 (2) GERD (gastroesophageal reflux disease) ICD Codes: K21.9 - Gastro-esophageal reflux disease without esophagitis SNOMED: 448800908 Assessment/Plan: ppi repeat colonoscopy Subjective ROS Limited/Unobtainable: Yes Allergies: Coded Allergies: No Known Allergies (Unverified , 03/31/16) Objective General Appearance: alert EENT: normal ENT inspection Neck: supple Cardiovascular: normal rate Respiratory/Chest: decreased breath sounds Abdomen: normal bowel sounds, non tender, soft Extremities: non-tender Earle Garcia MD Aug 09, 2018 14:50
[2018-08-09] MEDS ORDERED: FAMOTIDINE20 MG ORAL (15:35)
[2018-08-09 15:36] VITALS: BP 116/67
== END 2018-08-09 16:00 | disposition home or self-care (01) ==
LOC: PAN 14:26
DX: K21.9 Gastro-esophageal reflux disease without esophagitis (principal); C18.9 Malignant neoplasm of colon, unspecified
CPT/HCPCS: 99212

== ENCOUNTER 2018-08-29 08:23 | Day surgery (SDC) | payer MEDICARE ==
[~2018-08-29] VITALS: Ht 177.8 cm; Wt 74.4 kg
[2018-08-29] VITALS (9 sets, daily range): BP systolic 109–121; BP diastolic 47–67
[~2018-08-29 08:23] MED LIST changes: +Atropine Inj 1mg/10ml Syr IV PRN; +DiphenhydrAMINE 50mg/ml Inj IVP PRN; +FAMOTIDINE20 MG ORAL; +Midazolam 2mg/2ml Inj IVP PRN; +fentaNYL 100 mcg/2 mL IV PRN
--- NOTE | 2018-08-29 09:05 | Pre-Procedure Note/Attestation ---
Pre-Procedure Note/Attestation Complete Prior to Procedure Planned Procedure: not applicable Procedure Narrative: esophagogastroduodenoscopy and colonoscopy Indications for Procedure Pre-Operative Diagnosis: h/o colon cancer, GERD Attestation I attest that I discussed the nature of the procedure; its benefits; risks and complications; and alternatives (and the risks and benefits of such alternatives ), prior to the procedure, with the patient (or the patient's legal student services representative). I attest that, if there was a reasonable possibility of needing a blood transfusion, the patient (or the patient's legal student services representative) was given the [facility] standardized written summary, pursuant to the [place] Blood Safety Act ([place] Health and Safety Code # 1645, as amended). I attest that I re-evaluated the patient just prior to the surgery and that there has been no change in the patient's H&P, except as documented below: Earle Garcia MD Aug 29, 2018 09:05
--- NOTE | 2018-08-29 09:06 | Short Stay Surgery H&P ---
History of Present Illness History of Present Illness Chief Complaint see recent office note HPI Victor Manuel Chapa is a 73 year old male who was admitted on for Colon Cancer, Gerd, Anemia Patient History Allergies: Coded Allergies: No Known Allergies (Unverified , 08/29/18) Medication History Scheduled Amlodipine Besylate* (Amlodipine Besylate*), 2.5 MG ORAL ACBREAKFAST, (Reported) Amlodipine Besylate* (Amlodipine Besylate*), 5 MG ORAL DAILY, (Reported) Atorvastatin Calcium* (Lipitor*), 10 MG ORAL BEDTIME, (Reported) Ergocalciferol (Vitamin D2)* (Vitamin D*), 50,000 UNIT ORAL ONCE A WEEK, ( Reported) Famotidine (Famotidine), 20 MG ORAL TWICE A DAY, (Reported) Metformin Hcl* (Metformin Hcl*), 500 MG ORAL DA, (Reported) Plan Attestation Are the patient's medical conditions optimized for surgery? Earle Garcia MD Aug 29, 2018 09:06
[2018-08-29] MEDS ORDERED: Lidocaine 1% MPF 10mg/ml 5ml ONE (09:30)
[2018-08-29] MEDS ORDERED: Propofol 200mg/20ml IV ONE (09:30)
--- NOTE | 2018-08-29 09:48 | Endoscopy Procedure Note ---
Endoscopy Procedure Note General Indication for Procedure: colon ca, GERD Procedures Performed: EGD, colonoscopy Operative Findings/Diagnosis: gastritis, diverticulosis Specimen: yes Pt Tolerated Procedure Well: Yes Estimated Blood Loss: none Anesthesia Anesthesiologist: teagan Anesthesia: MAC Inserted Devices Implant(s) used?: No Quality Quality of Bowel Preparation: Good Did scope reach the cecum?: Yes Was there any complications?: No GI Core Measures 50 yrs or older w/o bx or poly: No 10yrs. F/U recommended: Yes If not recommended, why?: Above average risk 18 years or older w/prev. colo: Yes <3yrs. since last colonoscopy: Yes Med reason:<3 yrs.: colon cancer Earle Garcia MD Aug 29, 2018 09:48
--- NOTE | 2018-08-29 10:02 | Anethesia Preoperative Eval ---
Anesthesia Pre-op PMH/ROS General Date of Evaluation: Aug 29, 2018 Time of Evaluation: 09:21 Anesthesiologist: teagan ASA Score: ASA 3 Mallampati Score Class I : Soft palate, uvula, fauces, pillars visible Class II: Soft palate, uvula, fauces visible Class III: Soft palate, base of uvula visible Class IV: Only hard plate visible Mallampati Classification: Class II Surgeon: asm Diagnosis: gerd, hx/o colon cancer Surgical Procedure: egd/colonoscopy Anesthesia History: none Social History: smoking - former smoker Family History: no anesthesia problems Allergies: Coded Allergies: No Known Allergies (Unverified , 08/29/18) Medications: see eMAR Patient NPO?: Yes Past Medical History Cardiovascular: Reports: HTN, other - hyperlipidemia Gastrointestinal/Genitourinary: Reports: GERD, other - hx/o colon cancer, prostate cancer Endocrine: Reports: DM Hematology/Immune: Reports: anemia Musculoskeletal/Integumentary: Reports: other - psoriasis, Anesthesia Pre-op Phys. Exam Physician Exam Last Vital Signs Date Time Temp Pulse Resp B/P (MAP) Pulse Ox O2 Delivery O2 Flow Rate FiO2 08/29/18 09:11 Room Air 08/29/18 09:04 97.2 62 18 121/65 99 Constitutional: NAD Neurologic: CN 2-12 intact Cardiovascular: RRR Respiratory: CTA Gastrointestinal: S/NT/ND Airway Exam Mallampati Score: Class II MO: limited Neck: flexible TMD: 2fb ROM: limited Anesthesia Pre-op A/P Risk Assessment & Plan Assessment: asa3 Plan: mac Status Change Before Surgery: No Pre-Antibiotics Drug: Maria Martinez MD Aug 29, 2018 10:02
--- NOTE | 2018-08-29 11:15 | Procedure Note ---
DATE OF PROCEDURE: 08/29/2018 SURGEON: Earle Garcia M.D. PROCEDURE: Upper endoscopy with biopsy and colonoscopy. ANESTHESIA: Per Dr. Sifuentes. INSTRUMENT: Olympus adult flexible upper endoscope and colonoscope. INDICATIONS: 1. History of colon cancer, status post resection, followup colonoscopy. 2. Chronic GERD. REASON FOR PROCEDURE: The procedure, risks, benefits, and possible consequences, including hemorrhage, aspiration, perforation and infection, and alternative treatments, were explained to the patient/legal guardian by Dr. Earle Garcia and the patient/legal guardian understood and accepted these risks. PROCEDURE IN DETAIL: After informed consent was obtained and the patient was adequately sedated, Olympus upper endoscope was advanced from the mouth into the second portion of the duodenum and retroflexion was performed in the stomach. The patient has evidence of small hiatal hernia and diffuse gastritis. Random biopsy from antrum and body was obtained to rule out H. pylori infection. On removing the scope, the patient had evidence of at least two large inlet patches in the upper esophagus. At this time, the upper endoscope was retrieved and the patient was turned over for colonoscopy. First, rectal exam was performed, which was normal. Then, the scope was advanced from the rectum into the anastomosis. Quality of prep was good. No obvious polyp was seen in this colonoscopy examination. The patient has evidence of diverticulosis. There was evidence of internal hemorrhoids on retroflexion. SUMMARY OF FINDINGS: 1. Two large inlet patches. 2. Small hiatal hernia. 3. Gastritis, status post biopsy. 4. Internal hemorrhoids. 5. Diverticulosis. RECOMMENDATIONS: 1. Follow up path and treat accordingly. 2. We will recommend repeat colonoscopy in 2 years. Earle Garcia M.D. DR: CLAUDINE JOB#: [id number] CC:
--- NOTE | 2018-08-29 14:07 | Immediate Post-Op Evaluation ---
Immediate Post-Op Evalulation Immediate Post-Op Evalulation Procedure: egd/colonoscopy w/bx Date of Evaluation: Aug 29, 2018 Time of Evaluation: 10:06 IV Fluids: 400ml 0.9ns Blood Products: none Estimated Blood Loss: negligible Blood Pressure Systolic: 118 Blood Pressure Diastolic: 47 Pulse Rate: 59 Respiratory Rate: 18 O2 Sat by Pulse Oximetry: 100 Temperature (Fahrenheit): 97.3 Pain Score (1-10): 0 Nausea: No Vomiting: No Complications none Patient Status: awake, reacts, patent Hydration Status: adequate Drug: Maria Martinez MD Aug 29, 2018 14:07
--- NOTE | 2018-08-29 14:08 | 48 Hour Post Anesthesia Eval ---
Post Anesthesia Evaluation Procedure: egd/colonoscopy w/bx Date of Evaluation: Aug 29, 2018 Time of Evaluation: 10:08 Blood Pressure Systolic: 111 0: 59 Pulse Rate: 56 Respiratory Rate: 18 Temperature (Fahrenheit): 97.3 O2 Sat by Pulse Oximetry: 100 Airway: patent Nausea: No Vomiting: No Pain Intensity: 0 Hydration Status: adequate Cardiopulmonary Status: stable Mental Status/LOC: patient returned to baseline Post-Anesthesia Complications: none Follow-up care needed: N/A Maria Flood MD Aug 29, 2018 14:08
--- NOTE | 2018-08-31 16:08 | Cardiology Report ---
APPROVED REPORT EKG Measurement Heart [id number] Normal sinus rhythm Minimal voltage criteria for LVH, may be normal variant Borderline ECG
== END 2018-08-29 11:35 | disposition home or self-care (01) ==
LOC: GAS 08:23
DX: K21.9 Gastro-esophageal reflux disease without esophagitis (principal); K44.9 Diaphragmatic hernia without obstruction or gangrene; K64.8 Other hemorrhoids; K57.90 Diverticulosis of intestine, part unspecified, without perforation or abscess without bleeding; K29.50 Unspecified chronic gastritis without bleeding; Z85.038 Personal history of other malignant neoplasm of large intestine; E78.5 Hyperlipidemia, unspecified; E11.9 Type 2 diabetes mellitus without complications; Z79.899 Other long term (current) drug therapy; Z79.84 Long term (current) use of oral hypoglycemic drugs; Z87.891 Personal history of nicotine dependence; Z85.46 Personal history of malignant neoplasm of prostate
CPT/HCPCS: 43239; 45378; 82962; 93005; J2704; 94003; 94150

== ENCOUNTER 2018-09-12 14:05 | Outpatient (CLI) | payer MEDICARE ==
[~2018-09-12 14:05] MED LIST changes: -Atropine Inj 1mg/10ml Syr IV PRN; -DiphenhydrAMINE 50mg/ml Inj IVP PRN; -Midazolam 2mg/2ml Inj IVP PRN; -fentaNYL 100 mcg/2 mL IV PRN
--- NOTE | 2018-09-12 14:42 | General Progress Note ---
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 SNOMED: 41396306 (2) GERD (gastroesophageal reflux disease) ICD Codes: K21.9 - Gastro-esophageal reflux disease without esophagitis SNOMED: 729239067 (3) Colon cancer ICD Codes: C18.9 - Malignant neoplasm of colon, unspecified SNOMED: 520222894 (4) Iron deficiency anemia ICD Codes: D50.9 - Iron deficiency anemia, unspecified SNOMED: 30585395 (5) Abdominal pain ICD Codes: R10.9 - Unspecified abdominal pain SNOMED: 94429586 Assessment/Plan: recent procedure reviewed cont ppi EGd with inlet patch ablation if needed Subjective ROS Limited/Unobtainable: Yes Allergies: Coded Allergies: No Known Allergies (Unverified , 08/29/18) Objective General Appearance: alert EENT: normal ENT inspection Neck: supple Cardiovascular: normal rate Respiratory/Chest: lungs clear Abdomen: normal bowel sounds, non tender, soft Extremities: non-tender Earle Garcia MD Sep 12, 2018 14:42
[2018-09-12] MEDS ORDERED: OMEPRAZOLE40 M1 ORAL (15:00)
[2018-09-12 15:01] VITALS: BP 108/62
== END 2018-09-12 16:05 | disposition home or self-care (01) ==
LOC: PAN 14:05
DX: K21.9 Gastro-esophageal reflux disease without esophagitis (principal); C18.9 Malignant neoplasm of colon, unspecified; Q39.8 Other congenital malformations of esophagus; D50.9 Iron deficiency anemia, unspecified; R10.9 Unspecified abdominal pain
CPT/HCPCS: 99212

== ENCOUNTER 2019-09-04 13:07 | Outpatient (CLI) | payer MEDICARE ==
[~2019-09-04 13:07] MED LIST changes: +OMEPRAZOLE40 M1 ORAL
== END 2019-09-04 15:07 | disposition home or self-care (01) ==
DX: K21.9 Gastro-esophageal reflux disease without esophagitis (principal); Z85.038 Personal history of other malignant neoplasm of large intestine

== ENCOUNTER → 2019-09-09 | Day surgery (SDC) | payer MEDICARE, OTHER ==
[2019-09-09] VITALS (10 sets, daily range): BP systolic 116–149; BP diastolic 58–75
[~2019-09-09] VITALS: Ht 170.2 cm; Wt 73.5 kg
[~2019-09-09] MED LIST changes: +LR 1000ml ONE; +Lidocaine 1% MPF 10mg/ml 5ml ONE
--- NOTE | 2019-09-09 11:01 | Pre-Procedure Note/Attestation ---
Pre-Procedure Note/Attestation Complete Prior to Procedure Planned Procedure: not applicable Procedure Narrative: colonoscopy Indications for Procedure Pre-Operative Diagnosis: surveillance post cancer Attestation I attest that I discussed the nature of the procedure; its benefits; risks and complications; and alternatives (and the risks and benefits of such alternatives ), prior to the procedure, with the patient (or the patient's legal traveling sales representative). I attest that, if there was a reasonable possibility of needing a blood transfusion, the patient (or the patient's legal traveling sales representative) was given the [facility] standardized written summary, pursuant to the [place] Blood Safety Act ([place] Health and Safety Code # 1645, as amended). I attest that I re-evaluated the patient just prior to the surgery and that there has been no change in the patient's H&P, except as documented below: Earle Garcia MD Sep 09, 2019 11:01
--- NOTE | 2019-09-09 11:02 | Short Stay Surgery H&P ---
History of Present Illness History of Present Illness Chief Complaint surveillance colonoscopy HPI Victor Manuel Chapa is a 74 year old male who was admitted on for Colon Screening Patient History Allergies: Coded Allergies: No Known Allergies (Unverified , 08/29/18) Medication History Scheduled Amlodipine Besylate* (Amlodipine Besylate*), 5 MG ORAL DAILY, (Reported) Atorvastatin Calcium* (Lipitor*), 10 MG ORAL BEDTIME, (Reported) Ergocalciferol (Vitamin D2)* (Vitamin D*), 50,000 UNIT ORAL ONCE A WEEK, ( Reported) Metformin Hcl* (Metformin Hcl*), 500 MG ORAL DA, (Reported) Omeprazole (Omeprazole), 40 MG ORAL DAILY, (Reported) Review of Systems Cardiovascular: Reports: no symptoms Respiratory: Reports: no symptoms Skeletal: Reports: no symptoms Genitourinary: Reports: no symptoms Neurologic: Reports: no symptoms Endocrine: Reports: no symptoms Physical Exam Vital Signs Last Vital Signs Date Time Temp Pulse Resp B/P (MAP) Pulse Ox O2 Delivery O2 Flow Rate FiO2 09/09/19 10:08 97.9 61 18 144/75 98 Room Air Skin: normal HENT: normal Heart: normal Lungs: normal Abdomen: normal Extremities: normal Plan Plan of Care colonoscopy Attestation Are the patient's medical conditions optimized for surgery? Attestation Response: yes Earle Garcia MD Sep 09, 2019 11:02
--- NOTE | 2019-09-09 12:38 | Immediate Post-Op Evaluation ---
Immediate Post-Op Evalulation Immediate Post-Op Evalulation Procedure: colonoscopy Date of Evaluation: Sep 09, 2019 Time of Evaluation: 12:12 IV Fluids: 500 Blood Pressure Systolic: 119 Blood Pressure Diastolic: 60 Pulse Rate: 50 Respiratory Rate: 14 O2 Sat by Pulse Oximetry: 98 Temperature (Fahrenheit): 97.7 Pain Score (1-10): 0 Nausea: No Vomiting: No Complications none Patient Status: awake, patent Hydration Status: adequate Drug: none Rayne Connor CRNA Sep 09, 2019 12:38
--- NOTE | 2019-09-09 12:40 | Anethesia Preoperative Eval ---
Anesthesia Pre-op PMH/ROS General Date of Evaluation: Sep 09, 2019 Time of Evaluation: 11:45 Anesthesiologist: craig ASA Score: ASA 2 Mallampati Score Class I : Soft palate, uvula, fauces, pillars visible Class II: Soft palate, uvula, fauces visible Class III: Soft palate, base of uvula visible Class IV: Only hard plate visible Mallampati Classification: Class II Surgeon: sam Diagnosis: screening Surgical Procedure: colonocsocpy Anesthesia History: none Family History: no anesthesia problems Allergies: Coded Allergies: No Known Allergies (Unverified , 08/29/18) Medications: see eMAR Patient NPO?: Yes NPO Date: Sep 09, 2019 NPO Time: 00:01 Past Medical History Cardiovascular: Reports: HTN; Denies: CAD, MD, valve dz, arrhythmia, other Pulmonary: Denies: asthma, COPD, WENDY, other Gastrointestinal/Genitourinary: Reports: GERD; Denies: CRI, ESRD, other Neurologic/Psychiatric: Denies: dementia, CVA, depression/anxiety, TIA, other Endocrine: Reports: DM HEENT: Denies: cataract (L), cataract (R), glaucoma, CHIGNIK LAGOON (L), CHIGNIK LAGOON (R), other Hematology/Immune: Denies: anemia, DVT, bleeding disorder, other Musculoskeletal/Integumentary: Denies: OA, RA, DJD, DDD, edema, other PSxH Narrative: colonscopy Anesthesia Pre-op Phys. Exam Physician Exam Last Vital Signs Date Time Temp Pulse Resp B/P (MAP) Pulse Ox O2 Delivery O2 Flow Rate FiO2 09/09/19 12:30 51 20 122/65 100 Room Air 09/09/19 12:25 6 09/09/19 12:08 97.7 Constitutional: NAD Respiratory: CTA Gastrointestinal: S/NT/ND Airway Exam Mallampati Classification 2 Mallampati Score: Class II MO: full ROM: full Dentures: no upper, no lower Anesthesia Pre-op A/P Studies Pre-op Studies: EKG - sr Risk Assessment & Plan Plan: mac Status Change Before Surgery: No Pre-Antibiotics Drug: declined Rayne Connor CRNA Sep 09, 2019 12:40
--- NOTE | 2019-09-09 12:41 | 48 Hour Post Anesthesia Eval ---
Post Anesthesia Evaluation Procedure: colonoscopy Date of Evaluation: Sep 09, 2019 Time of Evaluation: 12:41 Blood Pressure Systolic: 125 0: 50 Pulse Rate: 70 Respiratory Rate: 14 O2 Sat by Pulse Oximetry: 98 Airway: patent Nausea: No Vomiting: No Hydration Status: adequate Cardiopulmonary Status: stable Mental Status/LOC: patient returned to baseline Post-Anesthesia Complications: none Follow-up care needed: N/A Rayne Connor CRNA Sep 09, 2019 12:41
--- NOTE | 2019-09-09 12:46 | Endoscopy Procedure Note ---
Endoscopy Procedure Note General Indication for Procedure: surveillance for colon cancer Procedures Performed: colonoscopy Operative Findings/Diagnosis: hemorrhoids Specimen: none Pt Tolerated Procedure Well: Yes Estimated Blood Loss: none Anesthesia Anesthesiologist: regino Anesthesia: MAC Inserted Devices Implant(s) used?: No Quality Quality of Bowel Preparation: Good Did scope reach the cecum?: Yes Was there any complications?: No GI Core Measures 50 yrs or older w/o bx or poly: No 10yrs. F/U recommended: Yes If not recommended, why?: Above average risk 18 years or older w/prev. colo: Yes <3yrs. since last colonoscopy: Yes Med reason:<3 yrs.: colon cancer Earle Garcia MD Sep 09, 2019 12:46
--- NOTE | 2019-09-09 20:30 | Procedure Note ---
DATE OF PROCEDURE: 09/09/2019 ENDOSCOPIST: Earle Garcia M.D. ANESTHESIOLOGIST: Rayne Carroll CRNA. PROCEDURE PERFORMED: Colonoscopy. INSTRUMENT USED: Olympus adult flexible colonoscopy. INDICATIONS FOR PROCEDURE: Surveillance colonoscopy after having diagnosis of colon cancer and resection. The procedure, risks, benefits, and possible consequences, including hemorrhage, aspiration, perforation and infection, and alternative treatments, were explained to the patient/legal guardian by Dr. Earle Garcia and the patient/legal guardian understood and accepted these risks. DESCRIPTION OF PROCEDURE: After informed consent was obtained and the patient was adequately sedated, a rectal examination was performed, which was positive for internal hemorrhoids. Then, the scope was advanced into the rectum into anastomosis. Quality of prep was good. The patient had evidence of scattered diverticulosis throughout the colon. No obvious recurrent mass, polyp, or any other pathology was seen. The patient tolerated the procedure very well without any complication. Retroflexion in the rectum showed evidence of internal hemorrhoids. SUMMARY OF FINDINGS: 1. Right hemicolectomy with normal anastomosis. 2. Diverticulosis. 3. Internal hemorrhoids. RECOMMENDATIONS: We will recommend repeat colonoscopy in 2 years. Earle Garcia M.D. DR: MALVIN JOB#: [id number] CC:
== END | disposition home or self-care (01) ==
LOC: GAS 09:29
DX: Z12.11 Encounter for screening for malignant neoplasm of colon (principal); I10 Essential (primary) hypertension; K21.9 Gastro-esophageal reflux disease without esophagitis; E11.9 Type 2 diabetes mellitus without complications; Z85.038 Personal history of other malignant neoplasm of large intestine; K57.90 Diverticulosis of intestine, part unspecified, without perforation or abscess without bleeding; Z90.49 Acquired absence of other specified parts of digestive tract; K64.8 Other hemorrhoids; Z79.899 Other long term (current) drug therapy; Z79.84 Long term (current) use of oral hypoglycemic drugs
CPT/HCPCS: 82962; 93005; 94003; G0105; J2704; J7120; 94150

== ENCOUNTER 2019-09-26 13:14 | Outpatient (CLI) | payer MEDICARE, OTHER ==
[~2019-09-26 13:14] MED LIST changes: -LR 1000ml ONE; -Lidocaine 1% MPF 10mg/ml 5ml ONE
[2019-09-26 13:33] VITALS: BP 127/73
--- NOTE | 2019-09-26 14:08 | General Progress Note ---
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 SNOMED: 76736159 (2) Abdominal pain ICD Codes: R10.9 - Unspecified abdominal pain SNOMED: 88746001 (3) GERD (gastroesophageal reflux disease) ICD Codes: K21.9 - Gastro-esophageal reflux disease without esophagitis SNOMED: 498248483 (4) Colon cancer ICD Codes: C18.9 - Malignant neoplasm of colon, unspecified SNOMED: 693924739 (5) Constipation ICD Codes: K59.00 - Constipation, unspecified SNOMED: 51001392 (6) Diabetes ICD Codes: E11.9 - Type 2 diabetes mellitus without complications SNOMED: 75186550 Assessment/Plan: decrease ppi to 20 mg daily add baclofen 10 mg at the bed time RTC 3 months repeat colon in 2 years Subjective ROS Limited/Unobtainable: Yes Allergies: Coded Allergies: No Known Allergies (Unverified , 08/29/18) Objective Last 24 Hour Vital Signs Date Time Temp Pulse Resp B/P (MAP) Pulse Ox O2 Delivery O2 Flow Rate FiO2 09/26/19 13:33 97.8 58 16 127/73 (91) 95 General Appearance: alert EENT: normal ENT inspection Neck: supple Cardiovascular: normal rate Respiratory/Chest: lungs clear Abdomen: normal bowel sounds, non tender, soft Extremities: non-tender Earle Garcia MD Sep 26, 2019 14:08
== END 2019-09-26 15:14 | disposition home or self-care (01) ==
LOC: PAN 13:14
DX: R10.9 Unspecified abdominal pain (principal); K21.9 Gastro-esophageal reflux disease without esophagitis; C18.9 Malignant neoplasm of colon, unspecified; K59.00 Constipation, unspecified; E11.9 Type 2 diabetes mellitus without complications; Q39.8 Other congenital malformations of esophagus
CPT/HCPCS: 99212